=== PATIENT | female | born 1975 | race Caucasian/White ===

== ENCOUNTER 2021-10-19 10:57 | Emergency (ER) | payer OTHER, SELFPAY ==
[2021-10-19 11:12] VITALS: BP 132/92; BP 134/77; PULSE 78; PULSE 84; RESP 16; TEMP 36.5; O2SAT 97; O2SAT 99; BMI 31.7
[2021-10-19 11:46] LABS: Appearance Urine HAZY; Color Urine YELLOW; Glucose Urine UA NEG (NEG); Leukocyte Esterase Urine NEG (NEG); Nitrite Urine NEG (NEG); Specific Gravity - Urine >= 1.030 (1.005-1.025); UACC Culture Trigger NO; Urine Blood 3+ (NEG); Urine Ketones NEG (NEG); Urine Protein NEG (NEG-TRACE)
[2021-10-19 11:49] LABS: UPreg QC Valid YES; Urine Pregnancy NEGATIVE (NEGATIVE)
[2021-10-19 11:58] LABS: Bacteria Urine TRACE /LPF; RBC Urine 50-75 /HPF (0); Squamous Epithelial Cell Urine 3+ /LPF; WBC Urine 0-2 /HPF (0-4)
[2021-10-19 12:02] LABS: COVID-19 Test Negative (Negative); IDNOW Serial# 16C4AD1C
[2021-10-19 12:31] LABS: Amphetamine Screen Urine Not Detected (Not Detect); Barbiturates, Urine Not Detected (Not Detect); Benzodiazepines Screen Urine Not Detected (Not Detect); Cannabinoid Screen Urine Not Detected (Not Detect); Cocaine Screen Urine Not Detected (Not Detect); Fentanyl, urine Not Detected (Not Detect); Opiate Screen Urine Not Detected (Not Detect); Phencyclidine Screen Urine Not Detected (Not Detect)
--- NOTE | 2021-10-19 13:44 | PC.NURSE ---
patient referred to [facility]
[2021-10-19 14:46] LABS: Ethanol 174 mg/dL
--- NOTE | 2021-10-19 17:12 | ED.PSYCH ---
HPI - Psych General Chief Complaint: Psychiatric Symptoms <SAMEER Ortiz Last Filed: 10/19/21 17:34> Stated Complaint: CRISIS,SI <SAMEER Ortiz Last Filed: 10/19/21 17:34> Time Seen by Provider: 10/19/21 12:40 <SAMEER Ortiz Last Filed: 10/19/21 17:34> Source: patient and EMS <SAMEER Ortiz Last Filed: 10/19/21 17:34> Mode of arrival: EMS <SAMEER Ortiz Last Filed: 10/19/21 17:34> History of Present Illness HPI Narrative: 46-year-old female with no significant past medical history presenting to the ED complaining of increased depression and suicidal ideations with a suicide attempt with self-inflicted lacerations to right wrist. Admits increased depression x1 month. Also reports vague HI. Reports drinking EtOH. Denies illicit drug use, CP/SOB, abdominal pain, nausea/vomiting, other illicit drugs. <SAMEER Ortiz Last Filed: 10/19/21 17:34> MD complaint: suicidal ideation, feels depressed, homicidal ideation and alcohol abuse <SAMEER Ortiz Last Filed: 10/19/21 17:34> Onset (ago): week(s) <SAMEER Ortiz - Last Filed: 10/19/21 17:34> Duration: constant <SAMEER Ortiz Last Filed: 10/19/21 17:34> Related Data Allergies/Adverse Reactions: Allergies Allergy/AdvReac Type Severity Reaction Status Date / Time No Known Allergies Allergy Verified 10/19/21 17:33 <SAMEER Ortiz Last Filed: 10/19/21 17:34> Review of Systems Review of Systems: Constitutional: No Fever, No Chills, No Fatigue, No Malaise ENT/Mouth: No Ear Pain, No Nasal Congestion, No sore throat Eyes: No Eye Pain, No Swelling, No Redness Cardiovascular: No Chest Pain, No SOB, No Edema Respiratory: No Cough, No Dyspnea Gastrointestinal: No Nausea, No Vomiting, No Diarrhea, No Abdominal pain Genitourinary: No Dysuria,No Hematuria, No Urgency, No Flank Pain Musculoskeletal: No joint pain, No Myalgias Skin: + superficial laceration, No rash Neuro: No Weakness, No Headache Psych: No Anxiety/Panic, + Depression, + SI/HI, No AH/VH, No Social Issues <SAMEER Ortiz - Last Filed: 10/19/21 17:34> Yes all other systems are reviewed and are negative <SAMEER Ortiz - Last Filed: 10/19/21 17:34> [facility] Past Medical History Attestation statement: The following information was validated with the patient. <SAMEER Ortiz - Last Filed: 10/19/21 17:34> Social History Social History: Social History Advance Directives: No Advance Directives Information Provided: Yes Patient : No <SAMEER Ortiz - Last Filed: 10/19/21 17:34> Physical Exam Vital Signs: Vital Signs: Last Vital Signs Temp 97.7 F 10/19/21 11:12 Pulse 78 10/19/21 11:12 Resp 16 10/19/21 11:12 BP 134/77 10/19/21 11:12 Pulse Ox 99 10/19/21 11:12 BMI result Body Mass Index 31.7 <SAMEER Ortiz - Last Filed: 10/19/21 17:34> Vital Signs: Last Vital Signs Temp 97.7 F 10/19/21 11:12 Pulse 78 10/19/21 11:12 Resp 16 10/19/21 11:12 BP 134/77 10/19/21 11:12 Pulse Ox 99 10/19/21 11:12 BMI result Body Mass Index 31.7 <SAMEER Mayo - Last Filed: 10/19/21 19:09> Const: General: cooperative, no acute distress, alert and awake <SAMEER Ortiz - Last Filed: 10/19/21 17:34> Orientation/consciousness: patient oriented x3 <SAMEER Ortiz - Last Filed: 10/19/21 17:34> Limitations: no limitations <SAMEER Ortiz Last Filed: 10/19/21 17:34> HENMT: Head: Yes normal to inspection and Yes atraumatic <Raina Fischer PA - Last Filed: 10/19/21 17:34> Ears: hearing grossly normal bilaterally <Raina Fischer PA - Last Filed: 10/19/21 17:34> General nose exam: Normal external nose present <Raina Fischer PA - Last Filed: 10/19/21 17:34> Face and sinus: Yes normal facial exam <Raina Fischer PA - Last Filed: 10/19/21 17:34> Eyes: General: appearance normal, both eyes and all related structures <Raina Fischer PA - Last Filed: 10/19/21 17:34> EOM: EOMs intact bilaterally <Raina Fischer PA - Last Filed: 10/19/21 17:34> Neck: Neck: Yes normal visual inspection and Yes no meningeal signs <Raina Fischer PA - Last Filed: 10/19/21 17:34> Resp: Effort & Inspection: normal respiratory effort and no respiratory distress <Raina Fischer PA - Last Filed: 10/19/21 17:34> Auscultation: clear to auscultation bilaterally <Raina Fischer PA - Last Filed: 10/19/21 17:34> Cardio: Rate: regular rate <Raina Fischer PA - Last Filed: 10/19/21 17:34> Heart sounds: S1 normal heart sound present and S2 normal heart sound present <Raina Fischer PA - Last Filed: 10/19/21 17:34> GI: Inspection: Yes normal to inspection <Raina Fiscehr PA - Last Filed: 10/19/21 17:34> Palpation (GI): Soft to palpation, nontender, no guarding and not rigid <Raina Fischer PA - Last Filed: 10/19/21 17:34> Skin: Other: Superficial lacerations to right wrist <Raina Fischer PA - Last Filed: 10/19/21 17:34> Rashes: no rashes <Raina Fischer PA - Last Filed: 10/19/21 17:34> Neuro: General: patient oriented x3, tone normal, moves all extremities, no meningeal signs and CN's II-XI intact bilaterally <SAMEER Ortiz Last Filed: 10/19/21 17:34> Extrem: General: Yes normal to inspection <SAMEER Ortiz - Last Filed: 10/19/21 17:34> Psych: Appearance: grossly normal <SAMEER Ortiz Last Filed: 10/19/21 17:34> Affect: Labile affect present and Irritable affect present <SAMEER Ortiz Last Filed: 10/19/21 17:34> Attitude: Guarded attititude/behavior present <SAMEER Ortiz Last Filed: 10/19/21 17:34> Thought content: Suicidality present, Homicidality present and Depressive thoughts present <SAMEER Ortiz Last Filed: 10/19/21 17:34> Course Course Course Narrative: -ethanol 174. Tox screen otherwise negative. -UA with RBC/not infected. COVID-19 negative. Patient medically cleared for crisis eval. Physician observation initiated -1800-- ED care transferred to SAMEER Bains pending crisis eval <SAMEER Ortiz Last Filed: 10/19/21 17:34> Reevaluation(s) Reevaluation #1: Spoke to Keena from care team who states patient is not meeting inpatient level of care. She has outpatient providers. She denies SI and HI. She will follow-up with her providers on an outpatient basis. At this time I feel comfortable discharge home <SAMEER Mayo - Last Filed: 10/19/21 19:09> Time: 19:08 <SAMEER Mayo - Last Filed: 10/19/21 19:09> MDM - Psych MDM Narrative Medical decision making narrative: 46-year-old female with no significant past medical history presenting to the ED complaining of increased depression and suicidal ideations with a suicide attempt with self-inflicted lacerations to right wrist. On exam vital signs stable, NAD/nontoxic, guarded, + SI and vague HI during evaluation. Superficial lacerations noted to right wrist not needing repair/not with active infection. Plan: Ethanol, CADENA, crisis consult <SAMEER Ortiz Last Filed: 10/19/21 17:34> Differential Diagnosis Differential diagnosis: Likely homicidal ideation, suicidal ideation, depression, substance abuse and alcohol intoxication <SAMEER Ortiz - Last Filed: 10/19/21 17:34> Medical Records Attestation: I reviewed the patient's medical records. <SAMEER Ortiz - Last Filed: 10/19/21 17:34> Lab Data Attestation: I reviewed the patient's lab results. <SAMEER Ortiz - Last Filed: 10/19/21 17:34> Labs: Lab Results 10/19/21 10/19/21 10/19/21 Range/Units 11:31 11:31 11:31 Urine Color YELLOW Urine Appearance HAZY Urine pH 5.0 (5.0-8.0) Ur Specific [place] >= 1.030 H (1.005-1.025) Urine Protein NEG (NEG-TRACE) MG/DL Urine Glucose (UA) NEG (NEG) MG/DL Urine Ketones NEG (NEG) MG/DL Urine Blood 3+ H (NEG) Urine Nitrite NEG (NEG) Ur Leukocyte Esterase NEG (NEG) Urine RBC 50-75 H (0) /HPF Urine WBC 0-2 (0-4) /HPF Ur Squamous Epith Cells 3+ /LPF Urine Bacteria TRACE /LPF Urine Test NEGATIVE (NEGATIVE) Urine Opiates Screen Not Detected (Not Detect) Urine Fentanyl Screen Not Detected (Not Detect) Ur Barbiturates Screen Not Detected (Not Detect) Ur Phencyclidine Scrn Not Detected (Not Detect) Ur Amphetamines Screen Not Detected (Not Detect) U Benzodiazepines Scrn Not Detected (Not Detect) Urine Cocaine Screen Not Detected (Not Detect) U Marijuana (THC) Screen Not Detected (Not Detect) Ethyl Alcohol mg/dL COVID-19 (CELESTINO) (Negative) COVID-19 Clin Com 10/19/21 10/19/21 Range/Units 11:33 14:08 Urine Color Urine Appearance Urine pH (5.0-8.0) Ur Specific [place] (1.005-1.025) Urine Protein (NEG-TRACE) MG/DL Urine Glucose (UA) (NEG) MG/DL Urine Ketones (NEG) MG/DL Urine Blood (NEG) Urine Nitrite (NEG) Ur Leukocyte Esterase (NEG) Urine RBC (0) /HPF Urine WBC (0-4) /HPF Ur Squamous Epith Cells /LPF Urine Bacteria /LPF Urine Test (NEGATIVE) Urine Opiates Screen (Not Detect) Urine Fentanyl Screen (Not Detect) Ur Barbiturates Screen (Not Detect) Ur Phencyclidine Scrn (Not Detect) Ur Amphetamines Screen (Not Detect) U Benzodiazepines Scrn (Not Detect) Urine Cocaine Screen (Not Detect) U Marijuana (THC) Screen (Not Detect) Ethyl Alcohol 174 mg/dL COVID-19 (CELESTINO) Negative (Negative) COVID-19 Clin Com See Note <SAMEER Ortiz - Last Filed: 10/19/21 17:34> Lab Results 10/19/21 10/19/21 10/19/21 Range/Units 11:31 11:31 11:31 Urine Color YELLOW Urine Appearance HAZY Urine pH 5.0 (5.0-8.0) Ur Specific [place] >= 1.030 H (1.005-1.025) Urine Protein NEG (NEG-TRACE) MG/DL Urine Glucose (UA) NEG (NEG) MG/DL Urine Ketones NEG (NEG) MG/DL Urine Blood 3+ H (NEG) Urine Nitrite NEG (NEG) Ur Leukocyte Esterase NEG (NEG) Urine RBC 50-75 H (0) /HPF Urine WBC 0-2 (0-4) /HPF Ur Squamous Epith Cells 3+ /LPF Urine Bacteria TRACE /LPF Urine Test NEGATIVE (NEGATIVE) Urine Opiates Screen Not Detected (Not Detect) Urine Fentanyl Screen Not Detected (Not Detect) Ur Barbiturates Screen Not Detected (Not Detect) Ur Phencyclidine Scrn Not Detected (Not Detect) Ur Amphetamines Screen Not Detected (Not Detect) U Benzodiazepines Scrn Not Detected (Not Detect) Urine Cocaine Screen Not Detected (Not Detect) U Marijuana (THC) Screen Not Detected (Not Detect) Ethyl Alcohol mg/dL COVID-19 (CELESTINO) (Negative) [id number] 10/19/21 10/19/21 Range/Units 11:33 14:08 Urine Color Urine Appearance Urine pH (5.0-8.0) Ur Specific [place] (1.005-1.025) Urine Protein (NEG-TRACE) MG/DL Urine Glucose (UA) (NEG) MG/DL Urine Ketones (NEG) MG/DL Urine Blood (NEG) Urine Nitrite (NEG) Ur Leukocyte Esterase (NEG) Urine RBC (0) /HPF Urine WBC (0-4) /HPF Ur Squamous Epith Cells /LPF Urine Bacteria /LPF Urine Test (NEGATIVE) Urine Opiates Screen (Not Detect) Urine Fentanyl Screen (Not Detect) Ur Barbiturates Screen (Not Detect) Ur Phencyclidine Scrn (Not Detect) Ur Amphetamines Screen (Not Detect) U Benzodiazepines Scrn (Not Detect) Urine Cocaine Screen (Not Detect) U Marijuana (THC) Screen (Not Detect) Ethyl Alcohol 174 mg/dL COVID-19 (CELESTINO) Negative (Negative) COVID-19 Clin Com See Note <SAMEER Mayo - Last Filed: 10/19/21 19:09> Discharge Plan Discharge Clinical Impression: Depression <SAMEER Ortiz - Last Filed: 10/19/21 17:34> Patient Disposition: Home, Self-Care <SAMEER Ortiz - Last Filed: 10/19/21 17:34> Instructions: Depression (ED) <SAMEER Ortiz - Last Filed: 10/19/21 17:34> Additional Instructions: Take your medications as prescribed. If you were prescribed antibiotics today, it is important that you take your medication to their entirety, do not skip any doses, do not finish them early. Follow-up with your primary care provider this week. Return to the emergency department with new or worsening symptoms. Such as fevers, chills, chest pain, shortness of breath, nausea, vomiting, dizziness, headache, vision changes, lethargy In case of emergency call 911 <SAMEER Ortiz - Last Filed: 10/19/21 17:34> Referrals: Physician,Unknown J [Primary Care Provider] - 2 days <SAMEER Ortiz - Last Filed: 10/19/21 17:34> Stand Alone Forms: Work/School Release <SAMEER Ortiz - Last Filed: 10/19/21 17:34>
== END 2021-10-19 20:59 | disposition home or self-care (01) ==
PROVIDERS: Physician Assistant; Emergency Provider Emergency Medicine
DX: F32.A Depression, unspecified (principal); F10.10 Alcohol abuse, uncomplicated; Y90.6 Blood alcohol level of 120-199 mg/100 ml; T14.91XA Suicide attempt, initial encounter; X78.9XXA Intentional self-harm by unspecified sharp object, initial encounter; Y93.89 Activity, other specified; Y92.9 Unspecified place or not applicable; Y99.9 Unspecified external cause status; Z20.822 Contact with and (suspected) exposure to COVID-19
CPT/HCPCS: 36415; 80307; 81001; 81025; 82077; 87635; 99283; 99284